=== PATIENT | male | born 1955 | race Caucasian/White ===

== ENCOUNTER → 2016-10-27 09:16 | Outpatient (CLI) | payer OTHER ==
[~2016-10-27 09:16] MED LIST: BUPROPION XL300 MG PO; EFFEXOR75 MG PO; HALOPERIDOL1 MG PO; HYDROCODONE-APA1 TAB PO; INDERAL10 MG PO; NORVASC5 MG PO; PHENERGAN25 M1 PO; PROAIR HFA8.5 GM INH; REGLAN10 MG PO; TRAZODONE HCL50 MG PO; ZESTRIL40 MG PO
[2016-11-17 13:45] VITALS: BMI 30.8
== END | disposition home or self-care (01) ==
LOC: D.RAD 09:16
DX: R13.10 Dysphagia, unspecified (principal)

== ENCOUNTER 2016-11-17 06:29 | Day surgery (SDC) | payer OTHER ==
[2016-11-16 13:06] LABS: BASOPHILS 0.7 % (0.0-2.0); EOSINOPHILS 1.9 % (0-7); HEMATOCRIT 45.3 % (42.0-54.0); HEMOGLOBIN 15.3 g/dL (13.5-17.5); IMMATURE GRANULOCYTES 0.6 % (0-5); LYMPHOCYTES 22.4 % (15-50); MCHC 33.8 g/dL (31.0-37.0); MCV 97.8 fL (80.0-100.0); NEUTROPHILS 63.4 % (40-80); PLATELET COUNT 265 10x3/uL (130-400); RBC 4.63 10x6/uL (4.20-6.10); RDW 13.4 % (11.5-14.5); WBC 8.9 10x3/uL (4.8-10.8)
[2016-11-16 13:14] LABS: CALC OSMOLALITY 274 mosm/kg (275-300); CALCIUM 8.7 mg/dL (8.5-10.1); CARBON DIOXIDE 26.1 mmol/L (21.0-32.0); CHLORIDE - SERUM 101 mmol/L (98-107); GLUCOSE 89 mg/dL (74-106); POTASSIUM - SERUM 4.8 mmol/L (3.5-5.1); SODIUM 137 mmol/L (136-145); UREA NITROGEN 18 mg/dL (7-18); eGFR NON AFRICAN AMERICAN 80 mL/min (90-120)
[~2016-11-17] VITALS: Ht 175.3 cm; Wt 94.5 kg
[2016-11-17] VITALS (11 sets, daily range): BP systolic 108–135; BP diastolic 70–93; Ht 175.3 cm; Wt 94.5 kg
--- NOTE | ~2016-11-17 | OP ---
PATIENT NAME: CARITO GO MEDICAL RECORD: [id number] :51 LOCATION:[id number] ADMISSION DATE: SURGEON: CARLOS BEDOLLA MD DATE OF OPERATION: 11/17/2016 PREOPERATIVE DIAGNOSES: 1. Hiatal hernia. 2. Gastroesophageal reflux disease. 3. Hypertension. 4. Asthma. 5. Tobacco dependence syndrome. POSTOPERATIVE DIAGNOSES: 1. Hiatal hernia. 2. Gastroesophageal reflux disease. 3. Hypertension. 4. Asthma. 5. Tobacco dependence syndrome. PROCEDURE: Laparoscopic hiatal hernia repair with Bharathi fundoplication. SURGEON: Carlos Bedolla MD. REPORT OF PROCEDURE: The patient's abdomen was prepped and draped in sterile fashion. A Veress needle was inserted in the left upper quadrant and abdomen was insufflated. An 11-mm Visiport trocar was inserted in the midline above the umbilicus. The Veress needle was inspected and there was no sign of any injury to bowel or surrounding structures. At this point, a 12-mm trocar was placed in the left subcostal region. A 5-mm trocar was placed in the epigastrium, a 5-mm trocar was placed in the left lateral abdomen and a 5-mm trocar was placed in the right lateral subcostal region. A liver retractor was inserted and the left lobe of the liver was elevated. I could see that the patient had about 3/4 of the stomach up in the chest through a hiatal hernia. There was a lot of tension on the stomach. We began our dissection in the lesser curvature and took down the lesser omentum using Harmonic scalpel. This was done all the way up to the right side of the right trang. We then took down the short gastrics around the greater curvature of the stomach around the fundus and up to the level of the left side of the right trang. We continued a tedious dissection in these areas. The patient had a lot of fatty tissue, which obscured our vision. I had to put in multiple Endoloops to try to hold the fatty tissue back. We eventually were able to dissect out the esophagus until we had a 360-degree inspection of this area. We dissected up into the thoracic cavity and took out as much of the hernia sac as possible. At this point, we had everything completely freed up and the stomach would lay more easily in the abdominal cavity. The diaphragmatic hiatus was closed with interrupted 0 Polydek times 3. The fundus of the stomach was wrapped in a posterior 360-degree wrap and sutured into place with interrupted 0 Polydek times 3. The top and bottom suture incorporated a bite of the esophagus. The wrap appeared to be in good position and did not appear to be too tight. We irrigated out the abdomen and I saw no evidence of any bleeding or bile leakage. At this point, the liver retractor was removed. The 11 and 12-mm trocar site fascias were closed with 0 Vicryls using a Hever-Reza suture passer device. At this point, the ports and insufflation were then removed. The wounds were then infused with a total of 10 mL of 0.25% Marcaine with epinephrine. We then closed the skin incisions with subcutaneous 5-0 Monocryl. OPERATIVE REPORT [id number] CARITO GO COMPLICATIONS: None. CONDITION: Stable. ANESTHESIA: General endotracheal and local. BLOOD LOSS: Minimal. TRANSINT:[id number] Voice Confirmation ID: [id number] DOCUMENT ID: [id number] CARLOS BEDOLLA MD CC: JOSEP ESCOBAR MD and RANCHO DAWSON DO [id number] DICTATION DATE: 11/17/16 1225 PHYSICIAN SURGEON: 11/17/16 1827 [facility] [address] [place] [address]
[~2016-11-17 06:29] MED LIST changes: -HYDROCODONE-APA1 TAB PO; -PHENERGAN25 M1 PO; -REGLAN10 MG PO
--- NOTE | 2016-11-17 13:20 | NUR ---
RECIEVED FROM RECOVERY ROOM, ASLEEP BUT EASILY AROUSED BY VOICE, DENIES PAIN, VITALS STABLE, BED LOWEST POSITION, SCD'S GIVEN, 5 LAP SITES ON ABD COVERED BY BANDAID, O2 ON 2L NC, RFA NS @ 125, WILL CONTINUE TO MONITOR
[2016-11-18 04:00] VITALS: BP 105/60
[2016-11-18 09:00] VITALS: BP 100/70
[2016-11-18 10:13] LABS: BASOPHILS 0.3 % (0.0-2.0); EOSINOPHILS 0.3 % (0-7); HEMATOCRIT 40.5 % (42.0-54.0); HEMOGLOBIN 13.1 g/dL (13.5-17.5); IMMATURE GRANULOCYTES 0.3 % (0-5); LYMPHOCYTES 14.1 % (15-50); MCH 32.7 pg (26.0-34.0); MCHC 32.3 g/dL (31.0-37.0); MEAN PLATELET VOLUME 10.8 fL (7.4-10.4); MONOCYTES 11.9 % (2-11); NEUTROPHILS 73.1 % (40-80); RBC 4.01 10x6/uL (4.20-6.10); RDW 13.3 % (11.5-14.5)
[2016-11-18 10:31] LABS: ANION GAP 10.8 mmol/L (8-16); CALCIUM 7.9 mg/dL (8.5-10.1); CARBON DIOXIDE 28.1 mmol/L (21.0-32.0); CREATININE - SERUM 1.1 mg/dL (0.6-1.3); PLATELET COUNT 203 10x3/uL (130-400); WBC 11.5 10x3/uL (4.8-10.8)
[2016-11-18 10:53] LABS: POTASSIUM - SERUM 3.9 mmol/L (3.5-5.1)
[2016-11-18] MEDS ORDERED: HYDROCODONE-APA1 TAB PO (13:15)
[2016-11-18] MEDS ORDERED: REGLAN10 MG PO (13:16)
[2016-11-18] MEDS ORDERED: PHENERGAN25 M1 PO (13:16)
[2016-11-18 13:34] VITALS: BP 114/71
--- NOTE | 2016-11-18 14:32 | NUR ---
DISCHARGE INSTRUCTIONS COMPLETED WITH PATIENT. D/C IV WITH CATH INTACT.
== END 2016-11-18 14:52 | disposition home or self-care (01) ==
LOC: D.OPS 06:29 → D.MS 06:29 → D.PAN 07:30 → D.OPS 07:30 → D.PAN 08:45 → D.MS 13:14 → D.OPS 11-18 14:52
PROVIDERS: Surgery
DX: K44.9 Diaphragmatic hernia without obstruction or gangrene (principal); K21.9 Gastro-esophageal reflux disease without esophagitis; I10 Essential (primary) hypertension; J45.909 Unspecified asthma, uncomplicated; F17.200 Nicotine dependence, unspecified, uncomplicated

== ENCOUNTER 2019-04-16 17:17 | Emergency (ER) | payer OTHER ==
[~2019-04-16] VITALS: Ht 175.3 cm; Wt 76.4 kg
[~2019-04-16 17:17] MED LIST changes: +HYDROCODONE-APA1 TAB PO; +PHENERGAN25 M1 PO; +REGLAN10 MG PO
[2019-04-16 17:22] VITALS: Ht 175.3 cm; Wt 76.4 kg
[2019-04-16] MEDS ORDERED: LISINOPRIL20 MG PO (18:44)
[2019-04-16] MEDS ORDERED: EFFEXOR75 MG PO (18:44)
[2019-04-16 18:59] VITALS: BP 163/116
== END 2019-04-16 19:00 | disposition home or self-care (01) ==
LOC: D.ER 17:17
DX: F43.21 Adjustment disorder with depressed mood (principal); I10 Essential (primary) hypertension

== ENCOUNTER 2019-05-18 21:15 | Emergency (ER) | payer MEDICARE ==
[~2019-05-18] VITALS: Ht 175.3 cm; Wt 72.7 kg
[~2019-05-18 21:15] MED LIST changes: +LISINOPRIL20 MG PO
[2019-05-18 21:22] VITALS: Ht 175.3 cm; Wt 72.7 kg
[2019-05-18 21:37] LABS: APPEARANCE CLEAR (CLEAR); COLOR YELLOW (YELLOW); GLUCOSE NEGATIVE (NEGATIVE); NITRITE NEGATIVE (NEGATIVE); PROTEIN TRACE mg/dL (NEGATIVE)
[2019-05-18 21:38] LABS: BILIRUBIN NEGATIVE (NEGATIVE); KETONE SMALL mg/dL (NEGATIVE); UROBILINOGEN NORMAL (NORMAL)
[2019-05-18 21:39] LABS: HEMATOCRIT 36.8 % (42.0-54.0); IMMATURE GRANULOCYTES 0.2 % (0-5); MCHC 32.6 g/dL (31.0-37.0); MCV 88.9 fL (80.0-100.0); MEAN PLATELET VOLUME 10.1 fL (7.4-10.4); MONOCYTES 13.4 % (2-11); NEUTROPHILS 63.4 % (40-80); RBC 4.14 10x6/uL (4.20-6.10); RDW 16.8 % (11.5-14.5); WBC 6.1 10x3/uL (4.8-10.8)
[2019-05-18 21:40] LABS: PLATELET COUNT 289 10x3/uL (130-400)
[2019-05-18 21:51] LABS: UDS - AMPHET NEGATIVE QUAL (NEGATIVE); UDS - BARB NEGATIVE QUAL (NEGATIVE); UDS - BENZO NEGATIVE QUAL (NEGATIVE); UDS - COCAINE NEGATIVE QUAL (NEGATIVE); UDS - OPIATE NEGATIVE QUAL (NEGATIVE); UDS - PCP NEGATIVE QUAL (NEGATIVE); UDS - THC NEGATIVE QUAL (NEGATIVE)
[2019-05-18 21:57] LABS: ACETAMINOPHEN 0.4 ug/mL (10.0-30.0); ALBUMIN 3.2 g/dL (3.4-5.0); ALKALINE PHOSPHATASE 46 U/L (46-116); ALT (SGPT) 18 U/L (10-68); BILIRUBIN - TOTAL 0.46 mg/dL (0.2-1.3); CALC OSMOLALITY 290 mosm/kg (275-300); CHLORIDE - SERUM 107 mmol/L (98-107); GLUCOSE 113 mg/dL (74-106); MAGNESIUM - SERUM 1.7 mg/dL (1.8-2.4); PROTEIN - SERUM 6.1 g/dL (6.4-8.2); SODIUM 144 mmol/L (136-145); UREA NITROGEN 20 mg/dL (7-18); eGFR NON AFRICAN AMERICAN 79 mL/min (90-120)
--- NOTE | 2019-05-18 22:36 | NUR ---
DR CAMARA NOTIFIED AND REVIEWED PT's BEHAVIOR AND ASSESSMENT RESULTS. PT IS A LOW RISK PER DR CAMARA, DR CAMARA STATED TO GIVE RESOURCES TO PT AT TIME OF DISCHARGE. NO FURTHER ORDERS AT THIS TIME. RESOURCES REVIEWED WITH PT AND HE VERBALIZED UNDERSTANDING.
[2019-05-19 02:45] VITALS: BP 130/76
== END 2019-05-19 02:45 ==
LOC: D.ER 21:15
PROVIDERS: Family Medicine
DX: R44.0 Auditory hallucinations (principal); R44.1 Visual hallucinations; I10 Essential (primary) hypertension; J44.9 Chronic obstructive pulmonary disease, unspecified

== ENCOUNTER 2019-09-01 18:46 | Emergency (ER) | payer MEDICARE ==
[~2019-09-01] VITALS: Ht 175.3 cm; Wt 63.6 kg
[2019-09-01 18:54] VITALS: BP 136/93; Ht 175.3 cm; Wt 63.6 kg
[2019-09-01 19:22] LABS: BASOPHILS 0.9 % (0-2); HEMATOCRIT 40.2 % (42.0-54.0); HEMOGLOBIN 13.5 g/dL (13.5-17.5); IMMATURE GRANULOCYTES 0.1 % (0-5); LYMPHOCYTES 27.9 % (15-50); MCH 31.1 pg (26.0-34.0); MCHC 33.6 g/dL (31.0-37.0); MCV 92.6 fL (80.0-100.0); MEAN PLATELET VOLUME 9.9 fL (7.4-10.4); MONOCYTES 9.4 % (2-11); NEUTROPHILS 59.7 % (40-80); PLATELET COUNT 328 10x3/uL (130-400); RBC 4.34 10x6/uL (4.20-6.10); WBC 9.2 10x3/uL (4.8-10.8)
[2019-09-01 19:22] LABS: APPEARANCE CLEAR (CLEAR); BILIRUBIN NEGATIVE (NEGATIVE); COLOR YELLOW (YELLOW); GLUCOSE NEGATIVE (NEGATIVE); KETONE NEGATIVE (NEGATIVE); NITRITE NEGATIVE (NEGATIVE); PROTEIN NEGATIVE (NEGATIVE); UROBILINOGEN NORMAL (NORMAL)
[2019-09-01 19:37] LABS: CALCIUM 8.7 mg/dL (8.5-10.1); CARBON DIOXIDE 29.4 mmol/L (21.0-32.0); CREATININE - SERUM 1.4 mg/dL (0.6-1.3); POTASSIUM - SERUM 4.4 mmol/L (3.5-5.1)
[2019-09-01 19:43] LABS: ALBUMIN 3.5 g/dL (3.4-5.0); BILIRUBIN - TOTAL 0.24 mg/dL (0.2-1.3); MAGNESIUM - SERUM 2.1 mg/dL (1.8-2.4); PROTEIN - SERUM 7.1 g/dL (6.4-8.2)
[2019-09-01 19:54] LABS: UDS - AMPHET NEGATIVE QUAL (NEGATIVE); UDS - BARB NEGATIVE QUAL (NEGATIVE); UDS - BENZO NEGATIVE QUAL (NEGATIVE); UDS - COCAINE NEGATIVE QUAL (NEGATIVE); UDS - OPIATE NEGATIVE QUAL (NEGATIVE); UDS - PCP NEGATIVE QUAL (NEGATIVE); UDS - THC NEGATIVE QUAL (NEGATIVE)
== END 2019-09-01 20:46 | disposition home or self-care (01) ==
LOC: D.ER 18:46
PROVIDERS: Family Medicine
DX: R46.89 Other symptoms and signs involving appearance and behavior (principal); R44.0 Auditory hallucinations; R44.1 Visual hallucinations